=== PATIENT | female | born 1975 | race Caucasian/White ===

== ENCOUNTER 2017-10-01 10:43 | Outpatient (CLI) | payer MEDICARE, MEDICAID | END 2017-10-01 10:44 | disposition home or self-care (01) | LOC: BICMRI 10:43 | PROVIDERS: ATTEND Specialist | DX: M51.17 Intervertebral disc disorders with radiculopathy, lumbosacral region (principal) | CPT/HCPCS: 72148 ==

== ENCOUNTER 2017-11-19 08:50 | Outpatient (CLI) | payer MEDICARE, MEDICAID ==
[2017-11-19] MEDS ORDERED: Magnevist 469MG/ML 20 ML VIAL ONE (09:00)
--- NOTE | 2017-11-19 13:02 | MRI ---
MRI OF RIGHT LOWER EXTREMITY, RIGHT THIGH WITH AND WITHOUT CONTRAST. CLINICAL HISTORY: Right lower extremity pain. COMPARISON: No prior imaging comparisons available. FINDINGS: The regional marrow signal reveals no acute edema. There is no intramuscular edema or evidence of lo calized soft tissue mass. The regional subcutaneous tissues reveal no acute inflammation. Incidenta l note of mild chondromalacia of the patellofemoral joint, incompletely assessed. There is no pathologic enhancement evident by post-contrast imaging series. No significant pathology within the imaged, partially visualized pelvic structures. IMPRESSION: No acute abnormality of the right thigh. POS: [facility]
== END 2017-11-19 08:51 | disposition home or self-care (01) ==
LOC: SCSMRI 08:50
PROVIDERS: ATTEND Psychiatry & Neurology Neurology
DX: M25.551 Pain in right hip (principal)
CPT/HCPCS: A9579

== ENCOUNTER 2019-03-11 12:10 | Outpatient (CLI) | payer MEDICARE, MEDICAID ==
--- NOTE | 2019-03-11 13:18 | MMO ---
Bilateral MAMMO Bilat Screen [facility]. CLINICAL HISTORY: Patient is 43 years old and is seen for screening. The patient has the following family history of breast cancer: cousin female, at age 45, malignant (generic). The patient has no personal history of cancer. VIEWS: The views performed were: bilateral craniocaudal with tomosynthesis and bilateral mediolateral oblique with tomosynthesis. FILMS COMPARED: The present examination has been compared to a prior imaging study performed at [facility] on 07/15/2017. MAMMOGRAM FINDINGS: The breasts are heterogeneously dense, which could obscure a lesion on mammography. There are no suspicious masses, suspicious calcifications, or new areas of architectural distortion. IMPRESSION: THERE IS NO MAMMOGRAPHIC EVIDENCE OF MALIGNANCY. A ROUTINE FOLLOW-UP MAMMOGRAM IN 1 YEAR IS RECOMMENDED. THE RESULTS OF THIS EXAM WERE SENT TO THE PATIENT. ACR BI-RADS Category 1 - Negative MAMMOGRAPHY NOTE: 1. A negative mammogram report should not delay a biopsy if a dominant of clinically suspicious mass is present. 2. Approximately 10% to 15% of breast cancers are not detected by mammography. 3. Adenosis and dense breasts may obscure an underlying neoplasm.
== END 2019-03-11 12:11 | disposition home or self-care (01) ==
LOC: BICMAMMO 12:10
PROVIDERS: ATTEND Family Medicine
DX: Z12.31 Encounter for screening mammogram for malignant neoplasm of breast (principal); Z80.3 Family history of malignant neoplasm of breast
CPT/HCPCS: 77063; 77067

== ENCOUNTER 2019-06-18 15:05 | Outpatient (CLI) | payer MEDICARE, MEDICAID ==
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
== END 2019-06-18 15:06 | disposition home or self-care (01) ==
LOC: BICMRI 15:05
PROVIDERS: ATTEND Nurse Practitioner Family
DX: M54.6 Pain in thoracic spine (principal); M51.24 Other intervertebral disc displacement, thoracic region
CPT/HCPCS: 72146

== ENCOUNTER 2019-10-26 10:08 | Outpatient (CLI) | payer MEDICARE, OTHER ==
--- NOTE | 2019-10-26 10:59 | ULT ---
THYROID ULTRASOUND: HISTORY: Enlarged thyroid gland. COMPARISON: None. FINDINGS: Thyroid isthmus measures 0.3 cm. Right thyroid lobe measures 5.5 x 1.5 x 2.2 cm. Left thyroid lobe measures 5.8 x 1.4 x 1.6 cm. Thyroid nodules: Right thyroid lobe: No nodules. Left thyroid lobe: 0.3 x 0.2 x 0.2 cm cyst in the lower pole. 0.2 x 0.2 x 0.3 cm solid nodule in the upper pole. IMPRESSION: Solid nodule in the upper pole of the left thyroid lobe. BI-RADS level TR 3; mildly suspicious. Follo w-up imaging in one year. Transcribed Date/Time: 10/26/2019 11:05 AM
== END 2019-10-26 10:09 | disposition home or self-care (01) ==
LOC: BICULT 10:08
PROVIDERS: ATTEND Family Medicine
DX: E04.9 Nontoxic goiter, unspecified (principal); E04.1 Nontoxic single thyroid nodule
CPT/HCPCS: 36415; 76536; 80053; 82306; 82607; 84439; 84443; 84481; 85025; 86376; 86800

== ENCOUNTER 2020-12-26 12:24 | Outpatient (CLI) | payer MEDICARE, MEDICAID | END 2020-12-26 12:25 | disposition home or self-care (01) | LOC: BICULT 12:24 | PROVIDERS: ATTEND Student in an Organized Health Care Education/Training Program | DX: E04.1 Nontoxic single thyroid nodule (principal) | CPT/HCPCS: 76536 ==

== ENCOUNTER 2022-04-10 08:36 | Outpatient (CLI) | payer MEDICARE, MEDICAID | END 2022-04-10 08:37 | disposition home or self-care (01) | LOC: BICMAMMO 08:36 | PROVIDERS: ATTEND Student in an Organized Health Care Education/Training Program | DX: Z12.31 Encounter for screening mammogram for malignant neoplasm of breast (principal); Z80.3 Family history of malignant neoplasm of breast | CPT/HCPCS: 77063; 77067 ==

== ENCOUNTER 2022-07-09 19:30 | Outpatient (CLI) | payer MEDICARE, MEDICAID | END 2022-07-09 19:31 | disposition home or self-care (01) | LOC: SLEEPLAB 19:30 | PROVIDERS: ATTEND Student in an Organized Health Care Education/Training Program | DX: G47.9 Sleep disorder, unspecified (principal); R53.83 Other fatigue; G47.00 Insomnia, unspecified; F41.9 Anxiety disorder, unspecified; E66.9 Obesity, unspecified; F31.9 Bipolar disorder, unspecified; G47.10 Hypersomnia, unspecified | CPT/HCPCS: 95810 ==

== ENCOUNTER 2023-07-09 07:56 | Outpatient (CLI) | payer MEDICARE, MEDICAID | END 2023-07-09 07:57 | disposition home or self-care (01) | LOC: BICMAMMO 07:56 | PROVIDERS: ATTEND Nurse Practitioner Family | DX: Z12.31 Encounter for screening mammogram for malignant neoplasm of breast (principal); Z80.3 Family history of malignant neoplasm of breast | CPT/HCPCS: 77063; 77067 ==

== ENCOUNTER 2024-08-31 12:18 | Outpatient (CLI) | payer MEDICARE, MEDICAID ==
[~2024-08-31 12:18] MED LIST: Magnevist 469MG/ML 20 ML VIAL ONE
== END 2024-08-31 12:19 | disposition home or self-care (01) ==
LOC: BICMRI 12:18
PROVIDERS: ATTEND Nurse Practitioner Family
DX: F31.62 Bipolar disorder, current episode mixed, moderate (principal); R42 Dizziness and giddiness
CPT/HCPCS: 70553